=== PATIENT | female | born 2000 | race African-American/Black ===

== ENCOUNTER 2022-12-29 09:23 | Emergency (ER) | payer OTHER ==
[~2022-12-29] VITALS: Ht 149.9 cm; Wt 44.0 kg
[2022-12-29 09:30] VITALS: BP 114/58; PULSE 110; RESP 18; TEMP 99; O2SAT 100
[2022-12-29 10:12] LABS: CLARITY URINE CLEAR (CLEAR); COLOR URINE YELLOW (YELLOW); KETONES URINE NEGATIVE (NEGATIVE); LEUKOCYTE ESTERASE URINE 2+ (NEGATIVE); NITRITE URINE NEGATIVE (NEGATIVE); OCCULT BLOOD URINE TRACE (NEGATIVE); PH URINE 7.5 (4.5-8.0); PROTEIN URINE TRACE (NEGATIVE); SPECIFIC GRAVITY URINE 1.008 (1.005-1.030)
[2022-12-31 19:06] LABS: NEISSERIA GONORRHOEAE NAA Positive (Negative)
== END 2022-12-29 11:02 | disposition left against medical advice (07) ==
LOC: ER 09:23
DX: Z53.21 Procedure and treatment not carried out due to patient leaving prior to being seen by health care provider (principal)
CPT/HCPCS: 81003; 87491; 87591; 99281

== ENCOUNTER 2023-02-28 06:19 | Emergency (ER) | payer OTHER ==
[~2023-02-28] VITALS: Ht 160 cm; Wt 50.0 kg
[2023-02-28 06:22] VITALS: BP 104/77; PULSE 80; RESP 20; O2SAT 98
[2023-02-28] MEDS ORDERED: ACETAMINOPHEN 500MG TABLET PO STA (06:48)
[2023-02-28] MEDS ORDERED: ONDANSETRON HCL 4MG/2ML INJ IV ONE (07:45)
[2023-02-28 08:11] LABS: BASOPHILS % 0.2 % (0.0-2.0); EOSINOPHILS % 0.1 % (0.0-5.0); HEMATOCRIT. 41.6 % (36.0-48.0); HEMOGLOBIN. 13.7 g/dL (12.0-16.0); LYMPHOCYTES % 8.7 % (20.0-50.0); MEAN CORPUSCULAR HEMOGLOBIN 28.7 pg (28.0-32.0); MEAN CORPUSCULAR HGB CONC 32.9 g/dL (31.0-37.0); MEAN CORPUSCULAR VOLUME 87.2 fL (81.0-99.0); MEAN PLATELET VOLUME 10.4 fl (7.4-10.4); MONOCYTES % 3.2 % (2.0-8.0); NEUTROPHILS % 87.8 % (40.0-76.0); PLATELET 186 x1000/uL (130-400); RED BLOOD CELL COUNT 4.77 mill/uL (4.2-5.4); RED CELL DISTRIBUTION WIDTH 14.5 % (11.6-14.6); WHITE BLOOD COUNT 10.7 x1000/uL (4.5-11.0)
[2023-02-28 08:27] LABS: CHLORIDE 111 mEq/L (98-107); INDEX HEMOLYSI 1 (1-3); INDEX ICTERIC 1 (1-4); INDEX LIPEMIC 1 (1-3); POTASSIUM 3.7 mEq/L (3.5-5.1); SODIUM 140 mEq/L (136-145)
[2023-02-28 08:39] LABS: ALANINE AMINOTRANSFERASE 16 IU/L (13-61); ASPARTATE AMINOTRANSFERASE 18 IU/L (15-37); BILIRUBIN TOTAL 0.7 mg/dL (0.1-1.0); CALCIUM 9.8 mg/dL (8.5-10.1); CARBON DIOXIDE 20 mEq/L (21-32); CREATININE 0.7 mg/dL (0.6-1.3); GLUCOSE 85 mg/dL (70-105); PROTEIN TOTAL 8.3 g/dL (6.0-8.3); UREA NITROGEN BLOOD 10 mg/dL (7-21)
[2023-02-28 08:43] LABS: HCG SCREEN NEGATIVE
[2023-02-28] MEDS ORDERED: TETRACAINE 0.5% OPHTH DROPS 4ML RIGHTEYE ONE (08:45)
[2023-02-28] MEDS ORDERED: TETANUS, DIPHTHERIA, PERTUSSIS VAC/PF 0.5ML (>10YR OLD) IM ONE (08:45)
[2023-02-28] MEDS ORDERED: FLUORESCEIN SODIUM 1MG/STRIP RIGHTEYE ONE (08:45)
[2023-02-28 10:15] VITALS: TEMP 98.1
[2023-02-28] MEDS ORDERED: ACETAMINOPHEN 500MG TABLET PO SCH (10:15)
[2023-02-28] MEDS ORDERED: IOHEXOL-300 100 ML BOTTLE ONE (22:44)
== END 2023-02-28 15:11 | disposition home or self-care (01) ==
LOC: ER 06:19
DX: R11.2 Nausea with vomiting, unspecified (principal); R10.84 Generalized abdominal pain; Y08.89XA Assault by other specified means, initial encounter; Y93.89 Activity, other specified; Y92.89 Other specified places as the place of occurrence of the external cause; Y99.8 Other external cause status
CPT/HCPCS: 80053; 84703; 85025; 36415; 71045; 70450; 70486; 71260; 72125; 74177; 90715; 90471; 96374; 99291; Q9967; J2405; Z7610 ×3